=== PATIENT | male | born 1940 | race Caucasian/White ===

== ENCOUNTER 2017-05-02 06:50 | Day surgery (SDC) | payer MEDICARE, OTHER ==
[~2017-05-02 06:50] MED LIST: BUPIVACAINE HCL 0.75% INJ/PF (7.5 MG/1 ML) 10 ML SDV OD PRN; KETOROLAC TROMETHAMINE 0.45% 4 DROP/0.4 ML DROPERETTE OD PRN
[2017-05-02] MEDS: CYCLOPENTOLATE 0.2%/PHENYLEPHRINE 1% OPH SOLN 2 ML OD PRN ×3 (07:05→07:38)
[2017-05-02] MEDS: TROPICAMIDE 1% OPH SOLN 3 ML OD PRN ×3 (07:05→07:38)
[2017-05-02] MEDS: BESIFLOXACIN HCL 0.6% OPH SUSP 5 ML BOTTLE OD PRN ×4 (07:06→08:26)
[2017-05-02] MEDS: TETRACAINE HCL 0.5% OPH SOLN 2 ML OD PRN ×4 (07:07→07:57)
[2017-05-02] MEDS ORDERED: MIDAZOLAM 2 MG/2 ML INJ ONE (07:24)
[2017-05-02] MEDS: EPINEPHRINE INJ/PF 1 MG/1 ML AMPULE ONE ×2 (08:07)
[2017-05-02] MEDS: LIDOCAINE 1% INJ-PF (10 MG/ML) 30 ML SDV ONE ×2 (08:08)
[2017-05-02] MEDS: CHONDR SU A NA/HYALUR INTRAOC KIT (SURGICARE) ONE ×2 (08:12)
--- NOTE | 2017-05-05 20:19 | [facility] OPERATIVE REPORT E ---
[facility] Operative Report NAME: HAKEEM MULLINS AGE: 76Y DATE OF SURGERY: 05/02/2017 ROOM: PREOPERATIVE DIAGNOSIS: Cataract, right eye. POSTOPERATIVE DIAGNOSIS: Cataract, right eye. OPERATION: Cataract extraction with intraocular lens implant of the right eye. SURGEON: CHELSI REEVES M.D. ANESTHESIA: Topical. PROCEDURE: After obtaining appropriate consent, the patient's right eye was prepped and draped in sterile fashion as well as the surgeon in a sterile manner and cataract surgery was started. First a paracentesis blade was used to make a small side-port incision. Viscoelastic was used to inflate the anterior chamber. Next a 2.4 mm incision was made with the paracentesis blade. A continuous capsulorrhexis incision was made using a cystotome and Utrata forceps. Following this hydrodissection was carried out to make the lens fully loose and mobile and it was rotated 90 degrees. Following this, a rvqbre-rjv-gcncqqb technique was used to phacoemulsify the lens with a CDE of 7.27. The remaining cortex was removed with irrigation/aspiration. Provisc was instilled into the capsular bag to inflate the bag. A SN60WF, 26.5 diopter lens was placed. The remaining viscoelastic material was removed with irrigation/aspiration. Following this, a 10-0 nylon suture was used to close the incision and it was found to be watertight. Vigamox was instilled in the eye and a protective shield was placed over the eye. The patient returned to the postoperative recovery in stable condition. DICTATING PHYSICIAN: CHELSI REEVES M.D. 1272M [id number] PHY#: [id number] ID: [id number] JOB#: [id number] ACCT: [id number] cc:CHELSI REEVES M.D. >
--- NOTE | 2017-05-05 20:19 | [facility] DISCHARGE SUMMARY E ---
[facility] Discharge Summary NAME: HAKEEM MULLINS AGE: 76Y ADMITTED: 05/02/2017 DISCHARGED: 05/02/2017 HISTORY OF PRESENT ILLNESS AND HOSPITAL COURSE: This is a 76-year-old male who underwent cataract extraction of the right eye. DIAGNOSIS: Cataract, right eye. HOSPITAL COURSE: He underwent surgery because he was having difficulty reading and difficulty seeing small print like medicine bottles. DISCHARGE INSTRUCTIONS: 1. He should be on a regular diet. 2. No bending at his waist and no heavy lifting. 3. He should use Besivance, Ilevro, and Durezol at 3 p.m. and 8 p.m. and sleep with a rigid shield. 4. I will see him for his one-day postoperative tomorrow. DICTATING PHYSICIAN: CHELSI REEVES M.D. 1272M 2016 PHY#: [id number] ID: [id number] JOB#: [id number] ACCT: [id number] cc:CHELSI REEVES M.D. >
== END 2017-05-02 09:18 | disposition home or self-care (01) ==
LOC: SC 06:50
PROVIDERS: ATTEND Internal Medicine
PROC: 08RJ3JZ Replacement of Right Lens with Synthetic Substitute, Percutaneous Approach (ICD-10-PCS; principal; 2017-05-02 08:00)
DX: H25.813 Combined forms of age-related cataract, bilateral (principal); H35.3131 Nonexudative age-related macular degeneration, bilateral, early dry stage; H43.813 Vitreous degeneration, bilateral; M19.90 Unspecified osteoarthritis, unspecified site; G47.30 Sleep apnea, unspecified
CPT/HCPCS: 66984; V2632; J2250; J3490 ×2; A9270; J0171; 142

== ENCOUNTER 2017-05-23 07:05 | Day surgery (SDC) | payer MEDICARE, OTHER ==
[~2017-05-23 07:05] MED LIST changes: -BUPIVACAINE HCL 0.75% INJ/PF (7.5 MG/1 ML) 10 ML SDV OD PRN; -KETOROLAC TROMETHAMINE 0.45% 4 DROP/0.4 ML DROPERETTE OD PRN; +KETOROLAC TROMETHAMINE 0.45% 4 DROP/0.4 ML DROPERETTE OS PRN; +MIDAZOLAM 2 MG/2 ML INJ ONE
[2017-05-23] MEDS ORDERED: CHONDR SU A NA/HYALUR INTRAOC KIT (SURGICARE) ONE (07:16)
[2017-05-23] MEDS ORDERED: LIDOCAINE 1% INJ-PF (10 MG/ML) 30 ML SDV ONE (07:16)
[2017-05-23] MEDS ORDERED: EPINEPHRINE INJ/PF 1 MG/1 ML AMPULE ONE (07:16)
[2017-05-23] MEDS: TROPICAMIDE 1% OPH SOLN 3 ML OS PRN ×3 (07:45→08:05)
[2017-05-23] MEDS: CYCLOPENTOLATE 0.2%/PHENYLEPHRINE 1% OPH SOLN 2 ML OS PRN ×3 (07:45→08:05)
[2017-05-23] MEDS: TETRACAINE HCL 0.5% OPH SOLN 2 ML OS PRN ×3 (07:46→08:13)
[2017-05-23] MEDS: BESIFLOXACIN HCL 0.6% OPH SUSP 5 ML BOTTLE OS PRN ×3 (07:46→08:36)
--- NOTE | 2017-05-23 12:59 | [facility] OPERATIVE REPORT E ---
[facility] Operative Report NAME: HAKEEM MULLINS AGE: 76Y DATE OF SURGERY: 05/23/2017 ROOM: PREOPERATIVE DIAGNOSIS: CATARACT, LEFT EYE. POSTOPERATIVE DIAGNOSIS: CATARACT, LEFT EYE. OPERATION: Cataract extraction with intraocular lens implant of the left eye. SURGEON: CHELSI REEVES M.D. ANESTHESIA: Topical. PROCEDURE: After obtaining appropriate consent, the patient's left eye was prepped and draped in sterile fashion as well as the surgeon in a sterile manner and cataract surgery was started. First a paracentesis blade was used to make a small side-port incision. Viscoelastic was used to inflate the anterior chamber. Next a 2.4 mm incision was made with the paracentesis blade. A continuous capsulorrhexis incision was made using a cystotome and Utrata forceps. Following this hydrodissection was carried out to make the lens fully loose and mobile and it was rotated 90 degrees. Following this, a otrlpa-ock-rsoshwf technique was used to phacoemulsify the lens with a CDE of 9.69. The remaining cortex was removed with irrigation/aspiration. Provisc was instilled into the capsular bag to inflate the bag. A SN60WF, 26.5 diopter lens was placed. The remaining viscoelastic material was removed with irrigation/aspiration. Following this, a 10-0 nylon suture was used to close the incision and it was found to be watertight. Vigamox was instilled in the eye and a protective shield was placed over the eye. The patient returned to the postoperative recovery in stable condition. DICTATING PHYSICIAN: CHELSI REEVES M.D. 1654M [id number] PHY#: [id number] ID: [id number] JOB#: [id number] ACCT: [id number] cc:CHELSI REEVES M.D. >
--- NOTE | 2017-05-23 12:59 | [facility] DISCHARGE SUMMARY E ---
[facility] Discharge Summary NAME: HAKEEM MULLINS AGE: 76Y ADMITTED: 05/23/2017 DISCHARGED: 05/23/2017 HOSPITAL COURSE: This is a 76-year-old male who underwent cataract extraction of the left eye, diagnosed as cataract left eye. He underwent surgery because he was having difficulty reading the TV screen, reading small print. He should be on a regular diet. No bending at his waist. No heavy lifting. He should use his Besivance, Ilevro, and Durezol at 3 p.m. and 8 p.m. and sleep with a rigid shield, and I will see him for his 1 day postoperative tomorrow. DICTATING PHYSICIAN: CHELSI REEVES M.D. 1654M [id number] PHY#: [id number] ID: [id number] JOB#: [id number] ACCT: [id number] cc:CHELSI REEVES M.D. >
== END 2017-05-23 09:18 | disposition home or self-care (01) ==
LOC: SC 07:05
PROVIDERS: ATTEND Internal Medicine
PROC: 08RK3JZ Replacement of Left Lens with Synthetic Substitute, Percutaneous Approach (ICD-10-PCS; principal; 2017-05-23 08:30)
DX: H25.812 Combined forms of age-related cataract, left eye (principal); Z96.1 Presence of intraocular lens; G47.33 Obstructive sleep apnea (adult) (pediatric)
CPT/HCPCS: 66984; V2632; J2250; J3490 ×2; A9270; J0171; 142